=== PATIENT | male | born 1945 | race Caucasian/White ===

== ENCOUNTER 2018-03-11 06:44 | Day surgery (SDC) | payer OTHER, MEDICARE ==
[2018-03-11] MEDS ORDERED: ceFAZolin 2 GM/SWFI 2 GM/20 ML SYR IVP ONE (06:55)
[2018-03-11] MEDS ORDERED: LR 1,000 ML IV ONE (06:55)
[2018-03-11] MEDS ORDERED: BUPIVACAINE 0.25% 30 ML SDV ONE ×2 (07:13→07:31)
[2018-03-11] MEDS ORDERED: ceFAZolin 2 GM/DEXTROSE 100 ML IV ONE (07:30)
--- NOTE | 2018-03-11 08:00 | POSTANESTH ---
Post Anesthetic Evaluation Cardiovascular Status: Normal, Stable Respiratory Status: Normal, Stable Level of Consciousness/Mental Status: Can Participate in Eval, Alert and Oriented Pain Control: Adequate, Prn Tx Ordered Nausea/Vomiting Control: Adequate, Prn Tx Ordered Complications Possibly Related to Anesthesia: None Noted
--- NOTE | 2018-03-11 08:03 | PDANEPAE ---
ANE History of Present Illness 72 yo male with R big toe retained hardware. ANE Past Medical History - Cardiovascular History Hx Hypertension: Yes Hx Arrhythmias: No Hx Chest Pain: No Hx Coronary Artery / Peripheral Vascular Disease: No Hx CHF / Valvular Disease: No Hx Palpitations: No - Pulmonary History Hx COPD: Yes Hx Asthma/Reactive Airway Disease: No Hx Recent Upper Respiratory Infection: No Hx Oxygen in Use at Home: No Hx Sleep Apnea: Yes Sleep Apnea Screening Result - Last Documented: Positive Pulmonary History Comment: MILD COPD. ROSALVA USES C-PAP - Neurologic History Hx Cerebrovascular Accident: No Hx Seizures: No Hx Dementia: No - Endocrine History Hx Diabetes: No Hypothyroid: No Hyperthyroid: No - Renal History Hx Renal Disorders: No Renal History Comment: NOCTURIA - Liver History Hx Hepatic Disorders: No - Neurological & Psychiatric Hx Hx Neurological and Psychiatric Disorders: Yes Neurological / Psychiatric History Comment: NEUROPATHY IN FEET - Cancer History Hx Cancer: No - Congenital Disorder History Hx Congenital Disorders: No - GI History Hx Gastrointestinal Disorders: No - Other Health History Other Health History: GLAUCOMA OS. DDD - Chronic Pain History Chronic Pain: Yes (KNEES USES BACE) - Surgical History Prior Surgeries: REVISION RT TOTAL KNEE 01/2013. CLOSED REDUCTION RT KNEE 2012. LUMBAR FUSION. LT EYE VITRECTOMY. TONSILLECTOMY. UMBILICAL HERNIA REPAIR. RT FOOT BAH NEUROMA& BUNION 2006. back fusion T1-10, L1-4 ANE Review of Systems Review of Systems: - Exercise capacity METS (RN): 6 METS - Systems Constitutional: Reports: no symptoms Respiratory: Reports: no symptoms ANE Patient History - Allergies Allergies/Adverse Reactions: No Allergies [NKDA] Allergy (Verified 02/27/18 11:37) - Home Medications Home Medications: Aspirin [Aspirin 81mg (*)] 81 mg PO DAILY 07/24/12 [Last Taken 1 Day Ago ~] Atorvastatin Calcium [Lipitor 40 mg (*)] 40 mg PO DAILY 07/24/12 [Last Taken 05:30] Multivitamins [Multivitamin (*)] 1 each PO DAILY 07/24/12 [Last Taken 1 Day Ago ~03/10/18] Naproxen Sodium [All Day Pain Relief] 400 mg PO BID PRN 07/24/12 [Last Taken 2 Days Ago ~03/09/18] amLODIPine BESYLATE [Norvasc 10 mg (*)] 10 mg PO DAILY 07/24/12 [Last Taken 12/05 05:00] Acetaminophen [Tylenol 325mg (*)] 325 mg PO Q4H PRN 07/31/12 [Last Taken 07:00] Gluc Virk/Chondro Virk A/Vit C/Mn [Glucosamine 1,500 Complex Cap] 1 each PO DAILY [Last Taken 1 Day Ago ~03/10/18] Herbals/Supplements -Info Only 1 ea PO DAILY 02/18/13 [Last Taken 1 Day Ago ~] Magnesium Oxide [Magnesium Oxide 400 mg (*)] 400 mg PO DAILY 02/18/13 [Last Taken 08/21/14] Travoprost Z 0.004% [Travatan Z 0.004% (*)] 1 drops LEFTEYE HS 02/18/13 [Last Taken 1 Day Ago ~03/10/18] Tamsulosin HCl 03/11/18 [Last Taken 03/11/18] Valsartan-Hctz 320-25 mg Tab 03/11/18 [Last Taken 1 Day Ago ~03/10/18] - NPO status NPO Since - Liquids (Date): 03/10/18 NPO Since - Liquids (Time): 19:00 NPO Since - Solids (Date): 03/10/18 NPO Since - Solids (Time): 15:30 - Anes Hx Anes Hx: no prior problems - Smoking Hx Smoking Status: Former smoker Marijuana use: No - Alcohol Use Alcohol Use: None - Family Anes Hx Family Anes Hx: neg - N/A Family Hx Anesthesia Complications: none ANE Labs/Vital Signs - Vital Signs Blood Pressure: 95/65 Heart Rate: 71 Respiratory Rate: 20 O2 Sat (%): 94 Height: 193.04 cm Weight: 111.13 kg ANE Physical Exam - Airway Neck exam: FROM (short TMD) Mallampati Score: Class 2 Mouth exam: normal dental/mouth exam - Pulmonary Pulmonary: clear to auscultation - Cardiovascular Cardiovascular: regular rate and rhythym - ASA Status ASA Status: III ANE Anesthesia Plan Anesthesia Plan: GA with mask Total IV Anesthesia: Yes
--- NOTE | 2018-03-11 08:14 | PDHPUP ---
History & Physical Update H&P update statement: This history and physical update is based on an assessment of the patient which was completed after admission or registration (within 24 hours), but prior to the surgery/procedure. H&P update: H&P reviewed & patient examined
--- NOTE | 2018-03-11 08:31 | PDGENHP ---
History & Physical Chief Complaint: right foot painful hardware History of Present Illness: notes multiple months of mild pain and irritation to right foot due to screw backing out Pertinent Past, Social, Family History: former smoker, no illicits, 2 beers a day Relevant Physical Exam: prominent screw backing out of right forefoot with out open wound; mild erythema; no ASOI Cardiorespiratory Assessment: normal auscultation. RRR; no murmurs, gallops or rubs
[2018-03-11] MEDS ORDERED: PROPOFOL/EMULSION 500 MG/50 ML BOTTLE IV ONE (08:35)
[2018-03-11] MEDS ORDERED: fentaNYL 100 MCG/2 ML INJ ONE (08:35)
[2018-03-11] MEDS ORDERED: LIDOCAINE 2% 5 ML SDV ONE (08:35)
[2018-03-11] MEDS ORDERED: DEXAMETHASONE 4 MG/ML VIAL ONE (08:35)
[2018-03-11] MEDS ORDERED: fentaNYL 100 MCG/2 ML INJ IVP PRN (08:55)
[2018-03-11] MEDS ORDERED: ONDANSETRON 4 MG/2 ML VIAL IVP PRN (08:55)
[2018-03-11] MEDS ORDERED: LR 500 ML IV PRN (08:55)
[2018-03-11] MEDS ORDERED: ACETAMINOPHEN 500 MG TAB PO PRN (08:55)
[2018-03-11] MEDS ORDERED: HYDROCODONE/APAP 5/325 TAB PO PRN (08:55)
[2018-03-11] MEDS ORDERED: NALOXONE HCL 0.4 MG/ML INJ IVP PRN (08:55)
--- NOTE | 2018-03-11 09:04 | POSTOPPROG ---
Post Op Note Date of Operation: 03/11/18 Surgeon: Froy Segura Fur Glazer: none Anesthesiologist: chung Anesthesia: IV Sedation Pre-op Diagnosis: painful retained hardware, right foot Post-op Diagnosis: same Indication: pain, irritation of hardware Procedure: hardware removal, right foot Inf/Abcess present in the surg proc area at time of surgery?: No EBL: Minimal Total fluids administered: per anesth Complications: none
[2018-03-11 11:39] VITALS: BP 89/54
--- NOTE | 2018-03-11 11:42 | GOP ---
[f rep st] OPERATIVE REPORT DATE OF OPERATION: 03/11/2018 SURGEON: Froy Segura DPM COREMAKING SUPERVISOR: None. ANESTHESIA: Local with monitored anesthesia care. PREOPERATIVE DIAGNOSIS: Painful retained hardware, right foot. POSTOPERATIVE DIAGNOSIS: Painful retained hardware, right foot. PROCEDURE PERFORMED: Hardware removal, right foot. FINDINGS: ESTIMATED BLOOD LOSS: Scant. DESCRIPTION OF PROCEDURE: Under mild sedation, the patient was brought into the operating room, [facility] ed on the operating table in the supine position. Following further IV sedation, 10 cc of 0.25% Pavel jeff plain was infiltrated about the patient's dorsal and distal 1st metatarsal head. Both wounds we re prepped and draped in the usual aseptic manner. A sterile pneumatic tourniquet was placed about t he patient's well-padded supramalleolar area. An Esmarch bandage was utilized to exsanguinate the nabor lewis's right foot and the tourniquet was inflated to 250 mmHg. Attention was then directed to the proximal portion of the already existing dorsal cicatrix in the ar ea of prominent hardware. The proximal extent of this cicatrix was excised out with 2 semi-elliptica l incisions. Roughly 1 cm ellipse of skin was then sharply removed and passed from the operative fie ld. A periosteal incision was made and the screw in question was identified and removed. The area w as copiously flushed with sterile normal saline. The deep tissues were closed with a single 4-0 [place] cryl. The subcutaneous tissue was closed with a single 4-0 Monocryl suture and the skin was closed w ith 2 interrupted horizontal mattress-type sutures of 4-0 Prolene. The wound was then dressed with X eroform and a sterile compressive dressing consisting of 4x4s and Emily. An Christiano wrap was then applie d. The tourniquet was dropped and a prompt hyperemic response was noted to all digits of the right f oot. Final fluoroscopic imagery was taken. The tolerated the procedure and anesthesia well. He was transferred to the recovery room with vital signs stable, vascular status intact to all digits of th e right foot. Following a period of postoperative monitoring, the patient will be discharged home on the following written and oral postoperative instructions. 1. Keep dressing clean, dry, and intact. 2. Ice and elevate as instructed. 3. Use surgical shoe at all times when ambulating. 4. All followup questions and concerns should be directed to [facility] at [phone]. PATHOLOGY: None. HEMOSTASIS: Pneumatic ankle tourniquet about the right ankle for 8 minutes. MATERIALS: None. INJECTABLES: 10 cc of 0.25% Marcaine plain. COMPLICATIONS: None. INDICATIONS FOR PROCEDURE: The patient had his right 1st metatarsophalangeal joint fused to 2-1/2 ye ars ago without issue. Over the last 6-12 months the patient has noticed a growing bump to the area overlying the proximal portion of the plate. Preoperative x-rays show all hardware is intact and unb roken. The area overlying this portion of the skin has become slightly erythematous but non-cellulit ic. The patient understands the risks, benefits, and alternatives to the proposed procedure and wish es to proceed. /[id number]/MODL
== END 2018-03-11 10:53 | disposition home or self-care (01) ==
LOC: FSGY 06:44
PROVIDERS: ATTEND Podiatrist Foot & Ankle Surgery
PROC: 0SPM04Z Removal of Internal Fixation Device from Right Metatarsal-Phalangeal Joint, Open Approach (ICD-10-PCS; principal; 2018-03-11 08:30)
DX: T84.84XA Pain due to internal orthopedic prosthetic devices, implants and grafts, initial encounter (principal); Z98.1 Arthrodesis status; Z87.891 Personal history of nicotine dependence
CPT/HCPCS: J0690; J1100; J2704; J3010